=== PATIENT | female | born 1995 | race Caucasian/White ===

== ENCOUNTER 2020-09-08 10:30 | Outpatient (RCR) | payer OTHER, SELFPAY ==
--- NOTE | 2020-08-10 11:33 | HP.PTEVAL_ITS ---
Patient's Visit Information DANIELLA BRADLEY is a 25 year old F referred to Physical Therapy by COLLEEN BROOKS with a diagnosis of Hip dysplasia s/p osteotomy and labral repair 05/03/20. Date of Evaluation: 08/10/20 Physical Therapist: Neville Colvin, DPT, OCS, CSCS - Visit Plan Frequency: 3x /Week Duration: 4-6 Weeks Plan: 3x/week for 4-6 weeks for. Hip ROM stretching emphasize extension gently, IR to tolerance and hip flexor stretching with quad and rollout. Hip stabilizer strengthening L. Return to machine strength and functional strength as allowed by protocol for B LE and core adn progress to I. Per protocol, Pt can progress to phase 3 if she can symmetrically squat to 100 degrees knee flexion and 10 rep step down with good muscular control. At that point, can work toward all LE strength and goal to get 150% body weight back squat to start plyometrics and jog. See protocol in file for details. Keep in mind, patients main goal is to return to power lifting in November when released by doctor. - Subjective Had L hip scope for labral tear and Katty acetabular osteotomy on 05/03/20. Not doing much since then, was on bed rest for 2 months then PT at week 9 at [facility] for about 4 weeks and now coming to . Doing school online at [employer]. Will go back end October. Pain is none day to day. Sleep is OK with pain. Purpose of surgery was due to inability to do weight lifting stuff due to pain. HEP at home: SLR flexion, clamshells, stretching. doing UE exercises. 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 Dressing and basic ADLs are going OK. Steps at home are no problem. Precautions: not allowed to run or impact until early Decer. No lower body lifting until 6 months. - Objective Walks normal, steps reciprocal one and two at a time without pain or issues. Trasnfers I. refelxes patella and achilles 2/3. Sensation LE WNL to gross light touch throughout. AROM ankles and knees symmetrical. hip aROM L ir 25 pain, R 30. Ext rotation L 70 adn R 80. flexion 115 B. extension 10 L and 15 R, tightness in hip flexors. Abduction symmetrical. HS are very loose, hip flexors slight tight on L vs R. Quads slight tight L vs R. Strength R hip IR 4+, ER 4+, flexion 4+, abd 4, ext 4. L hip IR 4-, Er 4-, flexion 4, abd 4-, ext 4-. No pain with strength testing. quad strength 5 B and HS 4 B, no pain. Overall patient doing well with some minor ROM and strength deficits L hip vs R. - Goals Goal 1:: Pt I in appropriate strength and flex exercises per protocol to get patient ready for heavy lifitn when allowed in November. Goal Time Frame: 6-8 Weeks Goal 2:: Pt feel 95% back to nnormal activities and no pain Goal Time Frame: 6-8 Weeks Goal 3:: LEFS score of 76/80 at least Goal Time Frame: 6-8 Weeks - Rehabilitation Potential Physical Therapy Diagnosis: s/p hip dysplasia surgery Rehabilitation Potential: Good - Anticipated Interventions Patient/Client Instruction: Educate patient on: Condition, Plan of Care For the Purpose of:: To increase ROM, To improve muscle performance and motor function, To improve ability of physical actions for home/community/work/leisure, To improve gait and locomotor functions Therapeutic Exercise to Include: Strength training, Flexibilty training, Passive ROM, Active ROM For the Purpose of:: To decrease pain, To improve muscle performance and motor function, To increase tolerance to activity/condition/position, To improve ability of physical actions for home/community/work/leisure Manual Therapy Techniques to Include: Passive ROM, Soft tissue mobilization For the Purpose of:: To improve muscle performance and motor function, To increase tolerance to activity/condition/position, To improve performance and independence with ADL's, To improve gait and locomotor functions Thank you for the opportunity to evaluate your patient. For Medicare and Medicare HMO plans, please review the plan of care and approve it. It will need to be FAXED BACK to us at [phone] for Medicare purposes. For Medicare only, by signing this I certify the plan of care. Please let me know if there are questions or concerns regarding this plan of care. Physician Signatur e: Date:
--- NOTE | 2020-09-08 11:00 | HP.PTREVAL ---
COLLEEN BROOKS, It has been my pleasure to treat DANIELLA BRADLEY over the last 12 visits for Hip dysplasia s/p osteotomy and labral repair 05/03/20. Please see the progress note below for an update on the physical therapy plan of care! Subjective: I feel like I got stronger. Squatting 125# yesterday and felt good. Not really having pain. Had some pain last week L groin but no problem after 2 days and that was an unusual 5/10 pain. Did take alleve. Activities normal outside of lifting. Sleep well. Will see doctor in November. Feels liek she could go up and continue at her gym in [place]. Objective/Function: Full aROM and PROM B hips and symmetrical, Symmetrical felxiibility, Strengh 5/5 testing in hip rotation, flex, abd, adduction adn extension on L and R. Squat is full to 110 hip flexion without pain or compensation today. Overall doing wella dn ready to progress on her own. Plan Plan: f/u one month to check squats, deadlifts, cleans and d/c if doing well. Pt to call prior if probems. Goals Goal 1:: Pt I in appropriate strength and flex exercises per protocol to get patient ready for heavy lifitn when allowed in November. Goal Time Frame: 6-8 Weeks Goal 2:: Pt feel 95% back to nnormal activities and no pain Goal Time Frame: 6-8 Weeks Goal Progress: 80% Goal 3:: LEFS score of 76/80 at least Goal Time Frame: 6-8 Weeks Goal Progress: Progressing Anticipated Interventions Patient/Client Instruction: Educate patient on: Condition, Plan of Care For the Purpose of:: To increase ROM, To improve muscle performance and motor function, To improve ability of physical actions for home/community/work/leisure, To improve gait and locomotor functions Therapeutic Exercise to Include: Strength training, Flexibilty training, Passive ROM, Active ROM For the Purpose of:: To decrease pain, To improve muscle performance and motor function, To increase tolerance to activity/condition/position, To improve ability of physical actions for home/community/work/leisure Manual Therapy Techniques to Include: Passive ROM, Soft tissue mobilization For the Purpose of:: To improve muscle performance and motor function, To increase tolerance to activity/condition/position, To improve performance and independence with ADL's, To improve gait and locomotor functions Please do not hesitate to contact me at [phone] by phone or if you have questions or concerns regarding this new plan of care! Sincerely, Neville Colvin, DPT, OCS, CSCS
--- NOTE | 2020-11-03 08:19 | HP.PT.NRP ---
DANIELLA BRADLEY was seen in my office for initial evaluation on 08/10/20. The following Plan of Care was established for this patient: Initial Frequency: 3x /Week Initial Duration: 4-6 Weeks Patient/Client Instruction: Educate patient on: Condition, Plan of Care For the Purpose of:: To increase ROM, To improve muscle performance and motor function, To improve ability of physical actions for home/community/work/leisure, To improve gait and locomotor functions Therapeutic Exercise to Include: Strength training, Flexibilty training, Passive ROM, Active ROM For the Purpose of:: To decrease pain, To improve muscle performance and motor function, To increase tolerance to activity/condition/position, To improve ability of physical actions for home/community/work/leisure Manual Therapy Techniques to Include: Passive ROM, Soft tissue mobilization For the Purpose of:: To improve muscle performance and motor function, To increase tolerance to activity/condition/position, To improve performance and independence with ADL's, To improve gait and locomotor functions This patient was last seen in our office 09/08/21. Pertinent comments regarding their Physical therapy will appear below: Pt seen 12 visits of POC adn was 80% better. She was to f/u one month later to ensure cotninued progress. She did not attend. at this point, I will discontinue due to nonattendance. At this point I will be discontinuing this patient from physical therapy. I would be happy to see this patient again in the future if found appropriate by the physician. Thank you! Neville Colvin, DPT, OCS, CSCS
== END 2020-09-08 19:00 | disposition home or self-care (01) ==
LOC: PT 10:30
DX: Z01.818 Encounter for other preprocedural examination (principal); Q65.89 Other specified congenital deformities of hip; M25.552 Pain in left hip; M25.532 Pain in left wrist
CPT/HCPCS: 97110; 97161; 97530